=== PATIENT | female | born 1985 | race Caucasian/White ===

== ENCOUNTER 2016-06-14 15:36 | Inpatient (IN) | payer OTHER ==
--- NOTE | ~2016-06-14 | DS ---
Unit #: [id number] #: [id number] Patient: MARY LOU CALDERON [id number] [facility] [address] [place] [address] [id number] MR#: [id number] NAME: MARY LOU CALDERON ROOM: P208 Age: 31 Sex: F Admission Date: 06/14/2016 : 1985 Discharge Date: 06/16/2016 Attending Physician: Rene Wren M.D. DISCHARGE SUMMARY REASON FOR ADMISSION Substance abuse and depression. DIAGNOSTIC STUDIES None. HOSPITAL COURSE The patient was admitted to inpatient unit on June 14 and discharged on June 16, 2016. Patient was treated with (1)00:25 therapy, medication management, psychoeducation and (2)00:28 . Patient responded well to the above modalities of treatment. Patient medication of Zoloft was resumed. Subsequently patient was discharged. Patient was able to contract for safety. DISCHARGE MEDICATIONS Zoloft 50 mg daily for mood symptoms. Desyrel 100 mg at bedtime for sleep. DISCHARGE DIAGNOSIS Psychiatric: Major depressive disorder, recurrent, severe. F33.3. Cannabis abuse, moderate. F12.20. Opiate use disorder, moderate. F11.20. Secondary diagnosis: Deferred. Medical: none. (3) 00:14 DISCHARGE INSTRUCTIONS Patient instructed to follow up in outpatient clinic per social media campaign manager. CONDITION ON DISCHARGE Patient pleasant and cooperative. Denied any psychotic symptoms or any suicidal ideation. PROGNOSIS Guarded. DIET AND ACTIVITY As tolerated. Dictated by... Unit #: [id number] #: [id number] Patient: MARY LOU CALDERON Pola Arango TD: 06/18/2016 08:09 JOB #: [id number] DISCHARGE SUMMARY Page 1 of 1 X Rene Wren MD X DISCHARGE SUMMARY
--- NOTE | ~2016-06-14 | PN ---
Unit #: [id number] #: [id number] Patient: MARY LOU CALDERON [id number] [facility] [address] [place] [address] [id number] I MR#: [id number] NAME: MARY LOU CALDERON ROOM: P208 Age: 31 Sex: F Admission Date: 06/14/2016 : 1985 Attending Physician: Rene Wren M.D. Admitting Physician: Pola Arango PROGRESS NOTES DATE 06/15/2016 DISCUSSION This is a 31-year-old female seen on 06/15/2016. Patient interviewed, chart reviewed, and obtained information from nursing staff. The patient is compliant and cooperative. Mood sad and dysphoric. Patient withdrawn, isolative, flat affect, sad dysphoric mood, but denied any thoughts of harming self or others. REVIEW OF SYSTEMS Complete review of system unremarkable. MENTAL STATUS EXAMINATION General appearance: Patient dressed causally. Attention span and concentration fair. Oriented to time and place. Mood and affect are sad and dysphoric. Speech is monotone. Thought process is goal directed. Patient denied any thoughts of harming self or others. Recent and remote memory poor. Insight and judgment poor. DIAGNOSES Major depressive disorder, recurrent, severe. Cannabis abuse, moderate. Opiate use disorder, moderate. ASSESSMENT/PLAN Advised to continue with the current medication. Consider further adjustment of medication. Dictated by... Pola Arango/rigoberto TD: 06/16/2016 14:51 JOB #: [id number] Unit #: [id number] #: [id number] Patient: MARY LOU CALDERON PROGRESS NOTES Page 1 of 1 X Rene Wren MD PROGRESS NOTE
--- NOTE | ~2016-06-14 | PA ---
Unit #: [id number] #: [id number] Patient: JOCELYN CALDERON [id number] [facility] [address] [place] [address] [id number] MR#: [id number] NAME: JOCELYN CALDERON ROOM: P208 Age: 31 Sex: F Admission Date: 06/14/2016 : 1985 Date of Assessment: 06/15/2016 Attending Physician: Rene Wren M.D. Admitting Physician: Rene Wren M.D. PSYCHIATRIC ASSESSMENT INFORMANT The patient reliability, fair; chart reliability, good. CHIEF COMPLAINT Substance abuse. HISTORY OF PRESENT ILLNESS Jocelyn is a 31-year-old female who has a long history of treatment at [facility], [facility], [facility], [place] for substance abuse and suicide attempt. The patient was admitted on 72-hour hold, brought by [employer] officer for suicidal ideation with a plan to cut her wrist. The patient denied having plans, but reported suicidal ideation, unable to contract for safety. The patient reported that she has been at [facility] and has been off from her medication for the last 5 days. The patient was using marijuana daily and heroin for unknown amount of time. The patient denied any homicidal ideation or psychotic symptom. Needing inpatient admission at this time for psychiatric stabilization. PAST PSYCHIATRIC HISTORY Remarkable for history of multiple treatment in past 2016, Residential [facility] 2014, Residential [facility] 2014, [facility], [place], operated by [facility], residential treatment at [facility], inpatient at [place] for chemical dependency and suicidal ideation. FAMILY HISTORY AND SOCIAL HISTORY The patient has a poor support system. No known history of any abuse. MEDICAL HISTORY Unremarkable for any chronic medical condition. Musculoskeletal; muscle strength and tone, no atrophy or abnormal movement. Gait normal. MEDICATION HISTORY The patient is on Wellbutrin 150 mg in the morning and Zoloft 25 mg in the morning. Noncompliant with medication. ALLERGIES No known drug allergies. SUBSTANCE ABUSE HISTORY The patient reported tobacco use, age of onset 15; alcohol, age of onset 18; marijuana, age of onset 18; crack cocaine, age of onset 31; history of heroin abuse. Denied any IV drug use. No history of blackout, withdrawal symptom, or any HIV or hepatitis. Unit #: [id number] #: [id number] Patient: JOCELYN CALDERON REVIEW OF SYSTEMS HEENT: Eyes, clear. Ears, nose, mouth, and throat; clear. CARDIOVASCULAR: Unremarkable. RESPIRATORY: Unremarkable. GI: Unremarkable. : Unremarkable. SKIN: Unremarkable. LYMPH NODE: Unremarkable. NEUROLOGIC: Unremarkable. ENDOCRINE: Unremarkable. HEMATOLOGIC: Unremarkable. ALLERGIC/IMMUNOLOGIC: Unremarkable. MUSCULOSKELETAL: Muscle strength and tone, no atrophy or abnormal movement. Gait normal MENTAL STATUS EXAMINATION CONSTITUTIONAL: Measurement of vital signs; temperature 98.6, pulse 82, respirations 16, and blood pressure 116/66, height 5 feet 2 inches, weight 160 pounds. GENERAL APPEARANCE: The patient dressed casually. The patient did not show any facial deformity. MUSCULOSKELETAL: Please see above. PSYCHIATRIC EXAMINATION Description of speech; regular rate, normal volume, normal articulation, coherent. Description of thought process, goal directed. Description of association, intact. Description of abnormal psychotic thinking; the patient denied any hallucination or delusions, but suicidal ideation as mentioned above. History of substance abuse. Description of the patient's judgment, concerning everyday activity, poor. Social situation, poor. Concerning psychiatric condition, poor. Complete mental status examination; oriented in time, place, and person. Recent and remote memory, fair. Attention span and concentration, fair. Language, able to name object and repeat phrases. Fund of knowledge, aware of current event and passive vocabulary, intact. Mood and affect, sad and dysphoric. Insight and judgment, poor. DIAGNOSES Psychiatric: Major depressive disorder, recurrent, severe, F33.3; cannabis abuse, moderate, F12.20; opioid use disorder, moderate to severe, F11.20. Secondary diagnosis: Deferred. Medical diagnosis: None. Stressors: Psychosocial stressors. PSYCHIATRIC PLAN AND TREATMENT GOAL AND DISCHARGE PLAN 1. Advised to admit the patient on the inpatient unit. Provide safe, supportive, and structured environment. 2. Ordered labs; CBC, CMP, UA, UDS, test. 3. Precaution for self-harm. 4. The patient to resume home medication Zoloft, Wellbutrin, and trazodone p.r.n. for sleep. The patient to attend all the programing. If needed, consider further adjustment of medication. Unit #: [id number] #: [id number] Patient: JOCELYN CALDERON 5. Treatment goal; to attain euthymic mood, gain insight into her problem, and learn coping skills. 6. Discharge plan; plan to stabilize the patient and consider followup in outpatient program. 7. The patient was started on detox protocol and detox monitoring. ESTIMATED LENGTH OF STAY 5 days. Dictated by... Rene Wren M.D. MARY LOU/tay TD: 06/15/2016 15:37 JOB #: [id number] PSYCHIATRIC ASSESSMENT Page 1 of 1 X Rene Wren MD X PSYCHIATRIC ASSESSMENT
--- NOTE | ~2016-06-14 | HP ---
Unit #: [id number] #: [id number] Patient: MARY LOU CALDERON [id number] [place] [address] [id number] MR#: [id number] NAME: MARY LOU CALDERON ROOM: P208 Age: 31 Sex: F Admission Date: 06/14/2016 : 1985 Attending Physician: Rene Wren M.D. Admitting Physician: Rene Wren M.D. HISTORY AND PHYSICAL HISTORY OF PRESENT ILLNESS The patient is a 31-year-old female admitted to [address] [place] [address] on 06/14/2016 for suicidal ideations. PAST MEDICAL HISTORY 1. Polysubstance abuse 2. Nicotine dependence 3. Asthma PAST SURGICAL HISTORY 1. LEEP procedure 2. Oral surgery SOCIAL HISTORY The patient is unemployed. She is staying at [facility]. She smokes a fifth of pack of cigarettes daily and has a history of polysubstance abuse including marijuana and heroin. FAMILY MEDICAL HISTORY Noncontributory. ALLERGIES Codeine and azithromycin CURRENT MEDICATIONS Zoloft REVIEW OF SYSTEMS CONSTITUTIONAL: No fever or chills. HEENT: Denies any sore throat, ear pain or runny nose. CARDIOVASCULAR: Denies chest pain, irregular heart rhythm or palpitations. CHEST: Denies shortness of breath or cough. No hemoptysis. GASTROINTESTINAL: Denies nausea, vomiting, diarrhea or chronic constipation. ENDOCRINE: Denies history of increased thirst or urination. No recent significant weight loss or gain. GENITOURINARY: Denies dysuria, frequency, or hematuria. SKIN: Denies any rashes. HEMATOLOGIC: Denies history of increased bleeding or bruising. MUSCULOSKELETAL: Denies any hot, swollen joints. No generalized muscle pain. NEUROLOGIC: Denies problems with vision or speech. No frequent, severe headaches. No numbness, tingling or weakness in any extremities. Denies Unit #: [id number] #: [id number] Patient: MARY LOU CALDERON loss of bladder or bowel control. PHYSICAL EXAM GENERAL: She is awake, alert and oriented in no acute distress. VITAL SIGNS: Temperature 98.6, heart rate 82, respiration 16, blood pressure 116/66. HEIGHT: 5'2". WEIGHT: 160 pounds. SKIN: Warm and dry without rash or lesion. HEENT: Normocephalic. TMs not viewed. Oral and nasal passages clear. Conjunctivae clear. PERRLA. EOMs intact. NECK: Supple without lymphadenopathy or thyromegaly. HEART: Regular rate and rhythm without murmur. LUNGS: Clear. ABDOMEN: Soft, nontender. : Not done. EXTREMITIES: No evidence of cyanosis, clubbing or edema. Moves all without focal deficit. NEUROLOGICAL: Grossly within normal limits. Cranial Nerves: II: Visual edwards are intact. III, IV AND : Extraocular movements are intact. Pupils are equal, round and reactive to light. V: Facial sensation is grossly normal. VII: Facial movements and expression are normal. VIII: Auditory acuity grossly intact. IX, X: Uvula is midline. Phonation is normal. XI: Patient shrugs shoulders and turns head normally. XII: Tongue protrudes in the midline. Sensory and Motor Function: Sensory and motor sensation is grossly normal. Motor: moves all extremities well. IMPRESSION 1. Psychiatric admission. 2. Polysubstance abuse. 3. Nicotine dependence. 4. Asthma. RECOMMENDATIONS Psychiatric per psychiatrist. MEDICAL: No contraindication to participate in facility activities. MEDICAL PROGNOSIS Good. MEDICAL CONDITION Stable. Dictated by... Oleg Alaniz/rina TD: 06/16/2016 00:30 JOB #: [id number] Unit #: [id number] #: [id number] Patient: MARY LOU CALDERON HISTORY AND PHYSICAL Page 1 of 1 X ANA SAMUEL APRN HISTORY AND PHYSICAL
== END 2016-06-16 09:20 | DRG 885 ==
LOC: P2S 15:36
PROC: HZ2ZZZZ Detoxification Services for Substance Abuse Treatment (ICD-10-PCS; principal; 2016-06-14)
DX: F33.2 Major depressive disorder, recurrent severe without psychotic features (principal); F11.20 Opioid dependence, uncomplicated; F17.210 Nicotine dependence, cigarettes, uncomplicated; J45.909 Unspecified asthma, uncomplicated; F12.10 Cannabis abuse, uncomplicated